=== PATIENT | male | born 1995 | race African-American/Black ===

== ENCOUNTER 2016-06-10 09:47 | Day surgery (SDC) | payer MEDICAID ==
[~2016-06-10] VITALS: Ht 137.2 cm; Wt 43.2 kg
[2016-06-10 11:44] VITALS: Ht 137.2 cm; Wt 43.2 kg
[2016-06-10] MEDS ORDERED: PHENOBARBITAL32.4 MG PO (11:58)
[2016-06-10] MEDS ORDERED: ZANTAC150 MG PO (12:00)
[2016-06-10] MEDS ORDERED: CLARITIN5 MG/5 ML PO (12:01)
[2016-06-10] MEDS ORDERED: VISTARIL50 MG PO (12:01)
[2016-06-10] MEDS ORDERED: MUPIROCIN22 GM TOPICAL (12:04)
[2016-06-10 12:05] LABS: HEMOGLOBIN 18.1 g/dL (13.5-17.5); MCH 26.6 pg (26.0-34.0); MCHC 34.2 g/dL (31.0-37.0); MCV 77.8 fL (80.0-100.0); MEAN PLATELET VOLUME 11.2 fL (7.4-10.4); RDW 14.6 % (11.5-14.5)
[2016-06-10] MEDS ORDERED: KEPPRA SOLU100 MG/ML PO (12:06)
[2016-06-10] MEDS ORDERED: BACLOFEN10 MG PO (12:06)
[2016-06-10] MEDS ORDERED: PROTONIX40 MG PO (12:07)
[2016-06-10] MEDS ORDERED: ROBINUL 1 MG TAB1 MG PO (12:07)
[2016-06-10] MEDS ORDERED: MIRALAX17 GM (12:08)
[2016-06-10 12:09] LABS: PLATELET COUNT 133 10x3/uL (130-400); RBC 6.81 10x6/uL (4.20-6.10)
[2016-06-10 12:17] LABS: CALC OSMOLALITY 280 mosm/kg (275-300); CALCIUM 10.4 mg/dL (8.5-10.1); CARBON DIOXIDE 29.3 mmol/L (21.0-32.0); CHLORIDE - SERUM 102 mmol/L (98-107); CREATININE - SERUM 0.7 mg/dL (0.6-1.3); GLUCOSE 83 mg/dL (74-106); POTASSIUM - SERUM 4.1 mmol/L (3.5-5.1); SODIUM 142 mmol/L (136-145); UREA NITROGEN 11 mg/dL (7-18); eGFR NON AFRICAN AMERICAN > 90 mL/min (90-120)
[2016-06-10 12:40] LABS: LYMPHOCYTES 71 % (15-50); MONOCYTES 3 % (2-11); NEUTROPHILS 26 % (40-80); PLATELET ESTIMATE NORMAL
[2016-06-10] MEDS ORDERED: PROTONIX20 MG PO (12:50)
--- NOTE | 2016-06-10 14:33 | OP ---
PATIENT NAME: LIDIA SHARP MEDICAL RECORD: [id number] :96 LOCATION:[facility] ADMISSION DATE: SURGEON: VITALIY MONTELONGO MD DATE OF OPERATION: 06/10/2016 PROCEDURE: EGD with biopsy. REFERRING PHYSICIAN: Dr. Rony Joseph. INDICATIONS: Mr. Sharp is a 20-year-old gentleman with a history of cerebral palsy, wheelchair bound, who has had difficulty swallowing (present in the majority of his life). Presently, he is on a honey thickened diet and takes all his meals orally. He is on Zantac 150 mg twice a day and Protonix 40 mg daily. At times, he seems to be gagging or having reflux symptoms. He had a video fluoroscopic swallowing study in November 2014 with findings showing increased risk for aspiration with all liquids, increased risk for acute choking events with solids due to poor oral skills, increased risk for aspiration with larger boluses and/or consecutive swallows, and increased risk for not being able to meet nutritional need by mouth due to identified oral motor deficits; no diet or manner of intake precautions could be identified in the study that would reasonably reduce his risk of aspiration. It was recommended that he continue his present diet of honey thickened liquids and pureed solids. He presents for outpatient EGD. PREMEDICATIONS: Total IV anesthesia (history of seizure disorder, cerebral palsy, ASA 3) propofol 220 mg. INSTRUMENT: Olympus video gastroscope. PROCEDURE AND FINDINGS: After receiving informed consent, Mr. Sharp's posterior pharynx was anesthetized with Cetacaine spray, placed in the left lateral decubitus position and sedated as per anesthesia. After achieving adequate level of sedation, gastroscope was introduced per orally and advanced to the duodenum without difficulty. The esophageal mucosa was without erythema, ulcers, strictures or masses. The lower esophageal sphincter gaped wide open and a [id number] sized hiatal hernia is present. The Z line was irregular suggestive of GE reflux and biopsies were taken from the distal third of the esophagus. There were some loss of gastric folds in the body of the stomach. There was mild prepyloric and antral erythema and antral biopsies were obtained to rule out Helicobacter pylori. No lesions were seen in the cardia or fundus. Pylorus was patent and competent. Duodenal mucosa was without erythema or ulcers, appeared normal through the second portion. Gastroscope was then withdrawn. Mr. Sharp tolerated the procedure well, no immediate complications. ASSESSMENT: 1. Irregular Z-line suggestive of gastroesophageal reflux, status post esophageal biopsy. 2. Gaping lower esophageal sphincter. 3. Small to moderate size hiatal hernia. 4. Mild gastritis. 5. Episodes of "reflux/gagging" likely secondary to gastroesophageal reflux. RECOMMENDATIONS: 1. Reflux precautions. 2. Strongly recommend he not had anything to eat or drink at least 2-3 hours OPERATIVE REPORT [id number] LIDIA SHARP going to bed for the evening. 3. Continue Protonix 40 mg daily and add Protonix 20 mg at bedtime. 4. Continue ranitidine b.i.d. 5. Follow up histopathology. TRANSINT:[id number] Voice Confirmation ID: [id number] DOCUMENT ID: [id number] VITALIY MONTELONGO MD at 1433 CC: RONY JOSEPH [id number] DICTATION DATE: 06/10/16 1300 TOUCH UP WORKER: 06/10/16 1320 [facility] [address] [id number]
--- NOTE | 2016-06-10 15:09 | NUR ---
1330--IV DC'D. FLACA GILES 2430--DISCHARGE INSTRUCTIONS GIVEN, PT VERBALIZES UNDERSTANDING. PT OFF UNIT VIA WC. FLACA GILES
== END 2016-06-10 14:20 | disposition home or self-care (01) ==
LOC: D.OPS 09:47
PROVIDERS: Anesthesiology
DX: K21.9 Gastro-esophageal reflux disease without esophagitis (principal); K44.9 Diaphragmatic hernia without obstruction or gangrene; K29.50 Unspecified chronic gastritis without bleeding; K20.8 Other esophagitis; G80.9 Cerebral palsy, unspecified; G40.909 Epilepsy, unspecified, not intractable, without status epilepticus; Z99.3 Dependence on wheelchair